=== PATIENT | male | born 1960 | race Caucasian/White ===

== ENCOUNTER → 2019-10-03 | Outpatient (CLI) | payer OTHER ==
--- NOTE | 2019-10-03 14:37 | 2DMMODE ---
[facility] [place] [address] 2 D/M-MODE ECHOCARDIOGRAM Name: DANIELLE REINA Room #: REG [facility]#: [id number] Admission: 10/03/19 Attend Phys: Hayden Marquez MD Discharge: Date of : 64 Report #: [id number] THIS REPORT FOR: //name// APPROVED REPORT Study performed: 10/03/2019 13:10:08 EXAM: Comprehensive 2D, Doppler, and color-flow Echocardiogram Patient Location: Out-Patient Status: routine BSA: 2.29 HR: 86 bpm BP: 136/84 mmHg Rhythm: NSR Other Information Study Quality: Adequate Indications Dyspnea on exertion. HTN, HLP, DM. 2D Dimensions RVDd: 35.41 mm IVSd: 14.00 (7-11mm) LVOT Diam: 21.80 (18-24mm) LVDd: 51.07 mm PWd: 14.00 (7-11mm) Ascending Ao: 37.85 (22-36mm) LVDs: 36.35 (25-40mm) Aortic Root: 38.67 mm Volumes Left Atrial Volume (Systole) Single Plane 4CH: 31.67 mL Single Plane 2CH: 54.59 mL LA ESV Index: 19.00 mL/m2 Aortic Valve AoV Peak Allen.: 1.72 m/s AO Peak Gr.: 11.89 mmHg LVOT Max P.26 mmHg LVOT Max V: 1.25 m/s SHEBA Vmax: 2.71 cm2 Mitral Valve E/A Ratio: 0.8 MV Decel. Time: 110.15 ms MV E Max Allen.: 0.78 m/s [facility] [address] [place] [address] 2 D/M-MODE ECHOCARDIOGRAM Name: DANIELLE REINA Room #: REG [facility]#: [id number] Admission: 10/03/19 Attend Phys: Hayden Marquez MD Discharge: Date of : 64 Report #: [id number] MV A Allen.: 0.98 m/s MV PHT: 31.94 ms IVRT: 79.58 ms Pulmonary Valve PV Peak Allen.: 1.10 m/s PV Peak Gr.: 4.86 mmHg Pulmonary Vein P Vein S: 0.66 m/s P Vein D: 0.51 m/s P Vein S/D Ratio: 1.29 Tricuspid Valve TR Peak Allen.: 2.50 m/s RAP Estimate: 5.00 mmHg TR Peak Gr.: 25.00 mmHg PA Pressure: 30.00 mmHg Left Ventricle The left ventricle is normal size. There is normal LV segmental wall motion. Mild concentric left ventricular hypertrophy. Left ventricular systolic function is normal. LVEF is 55-60%. Mild diastolic dysfunction is present (impaired relaxation pattern). Right Ventricle The right ventricle is normal size. The right ventricular systolic function is normal. Atria The left atrium size is normal. The right atrium size is normal. Aortic Valve The aortic valve is normal in structure. Trace to mild aortic regurgitation. There is no aortic valvular stenosis. Mitral Valve The mitral valve is normal in structure. Trace mitral regurgitation. No evidence of mitral valve stenosis. Tricuspid Valve The tricuspid valve is normal in structure. Trace tricuspid regurgitation. Estimated PAP is 30mmHg. Pulmonic Valve The pulmonary valve is normal in structure. Trace pulmonic [facility] [address] [place] [address] 2 D/M-MODE ECHOCARDIOGRAM Name: DANIELLE REINA MAK Room #: REG [facility]#: [id number] Admission: 10/03/19 Attend Phys: Hayden Marquez MD Discharge: Date of : 64 Report #: [id number] regurgitation. Great Vessels Aortic root is mildly dilated. IVC is normal in size and collapses >50% with inspiration. Pericardium There is no pericardial effusion. <Conclusion> The left ventricle is normal size. Mild concentric left ventricular hypertrophy. Left ventricular systolic function is normal. Mild diastolic dysfunction is present (impaired relaxation pattern). The right ventricle is normal size. The left atrium size is normal. Trace to mild aortic regurgitation. Trace mitral regurgitation. Trace tricuspid regurgitation. Estimated PAP is 30mmHg. <ELECTRONICALLY SIGNED> By: Hayden Marquez MD 10/03/19 1437 [id number] Hayden Marquez MD /SHALA
--- NOTE | 2019-10-03 14:42 | EXE ---
[facility] [employer] [employer] [place] [address] STRESS ECHOCARDIOGRAM Name: DANIELLE REINA Room #: REG [facility]#: [id number] Admission: 10/03/19 Attend Phys: Hayden Marquez MD Discharge: Date of : 64 Report #: [id number] THIS REPORT FOR: //name// APPROVED REPORT Study performed: 10/03/2019 13:39:28 Exam: Stress Echocardiogram Indication: Dyspnea on exertion Patient Location: Out-Patient Stress Nurse: ANGEL Brunner Status: routine Ht: 5 ft 10 in HR: 88 bpm BP: 136/84 mmHg Rhythm: NSR Medical History Medications: Blood pressure Allergies: No known drug allergies Cardiac Risk Factors: HTN, Hyperlipidemia, DM, Obesity Procedure The patient underwent an Exercise Stress Test using the Gary Protocol. Blood pressure, heart rate, and EKG were monitored. An Echocardiogram was performed by equipment service technician in four stages in quad fashion. At peak stress, four selected images were obtained and placed side by side with resting images for comparison. Stress Test Details Stress Test: Exercise stress testing was performed using a Gary protocol. HR Resting HR: 88 bpm Max Heart Rate (APMHR): 163 bpm Max HR Achieved: 130 bpm Target HR (85% APMHR): 138 bpm % of APMHR: 79 Recovery HR: 105 bpm HR response to stress: Normal HR response to stress BP Resting BP: 136/84 mmHg Max BP: 160/76 mmHg Recovery BP: 152/68 mmHg BP response to stress: Normal blood pressure response to stress. [facility] [address] [place] [address] STRESS ECHOCARDIOGRAM Name: DANIELLE REINA Room #: REG [facility]#: [id number] Admission: 10/03/19 Attend Phys: Hayden Marquez MD Discharge: Date of : 64 Report #: [id number] ECG Resting ECG: Sinus Rhythm Stress ECG: Sinus Rhythm, nonspecific ST-T abnormalities ST Change: Non-ischemic Clinical Reason for Termination: Maximal effort Stress Symptoms: Hip pain, dypnea Exercise duration: 7 min 32 sec Highest Stage Achieved: Stage 3: 3.4 mph at 14% grade. Exercise capacity: 10.40 METs Pre-Stress Echo The resting Echocardiogram showed normal left ventricular contractility with an estimated Ejection Fraction of about 55-60%. The resting echocardiogram demonstrated normal wall motion in all wall segments. Normal wall motion in all segments on baseline images. Post-Stress Echo The stress Echocardiogram showed normal left ventricular contractility with an estimated Ejection Fraction of about 65-70%. Compared to rest, there were no stress-induced wall motion abnormalities. Normal augmentation of wall motion in all segments on post stress images. Clinical No clinical or ECG evidence for ischemia. Conclusion Clinical Response: Non-ischemic Exercise Capacity: Average Stress ECG Response: Non-ischemic Stress Echo Images: Non-ischemic Non-diagnostic study due to inability of the patient to achieve 85% of maximal HR. Other Information Study Quality: Adequate <Conclusion> [facility] [address] [place] [address] STRESS ECHOCARDIOGRAM Name: DANIELLE REINA Room #: REG [facility]..#: [id number] Admission: 10/03/19 Attend Phys: Hayden Marquez MD Discharge: Date of : 64 Report #: [id number] Non-diagnostic study due to inability of the patient to achieve 85% of maximal HR. <ELECTRONICALLY SIGNED> By: Hayden Marquez MD 10/03/19 1442 [id number] 41 Hayden Marquez MD /INF
== END ==
LOC: CV 10:59
DX: I35.1 Nonrheumatic aortic (valve) insufficiency (principal); E78.5 Hyperlipidemia, unspecified; E11.9 Type 2 diabetes mellitus without complications; I11.9 Hypertensive heart disease without heart failure